=== PATIENT | female | born 1965 | race African-American/Black ===

== ENCOUNTER 2016-12-31 20:43 | Inpatient (IN) | payer OTHER ==
--- NOTE | ~2016-12-31 | CT102 ---
[facility] A Service of [facility] RADIOLOGY TEXT RESULTS PATIENT: CHRISTIAN FERNANDEZ LOCATION: [facility] [id number] : [birth year] UNIT #: [id number] AGE: [address]: Heena Thomas MD SEX: F ORDER DR: [id number] [facility] [address] [place], [place] [address] [id number] MR#: [id number] #: [id number] NAME: CHRISTIAN FERNANDEZ : 1965 SEX: F STUDY DATE/TIME: 12/31/2016 21:49 UNIT: CED ROOM: 55825 STUDY DESCRIPTION: CT Orbits W Contrast Attending Physician: Heena Thomas M.D. Ordering Physician: Wyatt Rouse M.D. Primary Care Physician: Robert Godinez M.D. MEDICAL IMAGING REPORT This report is preliminary unless electronic signature is present EXAM CT orbits with contrast INDICATIONS Right eye swelling since 12/15/2016. FINDINGS Axial 2-mm images were obtained through the orbits with 100 mL Isovue-370. Coronal reconstructions were generated. This CT exam was performed with one or more of the following radiation dose reduction techniques: Automatic exposure control, adjustment of mA and/or kV according to patient size, and iterative reconstruction. The globes, extraocular muscles and lacrimal glands appear normal. The skin overlying the right globe and maxillary region is thickened as compared with the left. There is mucous retention cyst in the right maxillary sinus. The bones are normal. IMPRESSION There appears to be some skin thickening overlying the right orbit extending from near the nose out to the zygomatic region. There is no abscess or other abnormality identified. Dictated by... Sonny Chery M.D. THIS IS AN ELECTRONICALLY VERIFIED REPORT Sonny Chery M.D. at 01/01/2017 5:54 AM FEL/yobany TD: 01/01/2017 02:07 [facility] A Service of [facility] RADIOLOGY TEXT RESULTS PATIENT: CHRISTIAN FERNANDEZ LOCATION: [facility] [id number] : [birth year] UNIT #: [id number] AGE: [address]: Heena Thomas MD SEX: F ORDER DR: JOB #: [id number] MEDICAL IMAGING REPORT Page 1 of 1 COPY
--- NOTE | ~2016-12-31 | HP ---
Unit #: [id number] #: [id number] Patient: CHRISTIAN FERNANDEZ [id number] [address] [place], [place] [address] [id number] MR#: [id number] NAME: CHRISTIAN FERNANDEZ ROOM: 18681 Age: 51 Sex: F Admission Date: 12/31/2016 : 1965 Attending Physician: Heena Thomas M.D. Primary Care Physician: Robert Godinez M.D. HISTORY AND PHYSICAL CHIEF COMPLAINT Persistent right periorbital cellulitis failing outpatient antibiotics. HISTORY This pleasant 51-year-old female with hypertension is admitted for right periorbital cellulitis. Two and a half weeks ago, the patient was scratched in her right eye by her grandchild accidentally. She subsequently developed swelling, pain, erythema and was seen by her primary care physician who prescribed Keflex. The patient initially had some improvement on the Keflex, but her symptoms worsened. She was changed to clindamycin and prednisone as she does have a pruritic rash over her face. Finished her prednisone yesterday, still is taking clindamycin. Notes initial improvement with the clindamycin, but now worsening symptoms over the past few days. Also feeling somewhat feverish. She presents to this emergency department where she has right periorbital cellulitis, and a pruritic rash over the right side of her face. The patient was given 5 mg of [place], vancomycin, morphine, potassium and Benadryl. Both the CT scan, as well as exam findings are consistent with a right periorbital cellulitis. No abscess is present. PAST MEDICAL HISTORY 1. Hypertension. 2. Left foot surgery. 3. Total abdominal hysterectomy. 4. BTL. ALLERGIES No known drug allergies. HOME MEDICATIONS Lisinopril 40 mg daily; metoprolol 25 mg b.i.d.; HCTZ 25 mg daily; Norvasc 5 mg daily. FAMILY HISTORY Diabetes mellitus and hypertension. SOCIAL HISTORY The patient lives with her brother and two teenage children. She smokes about a pack per day of tobacco and does not drink alcohol. REVIEW OF SYSTEMS Notable for itching, pain, swelling, around the right eye, particularly the upper lid with a pruritic rash over the face, hypertension, above Unit #: [id number] #: [id number] Patient: CHRISTIAN FERNANDEZ mentioned surgeries, tobacco abuse, feeling feverish. All other systems were reviewed and are negative. PHYSICAL EXAMINATION GENERAL: Pleasant 51-year-old female currently in no acute distress. VITAL SIGNS: Temperature 98.3, pulse 75, respirations 16, blood pressure 167/100, O2 saturation 100% on room air. HEENT: Notable for ptosis of the right upper eyelid, with periorbital cellulitis of the right upper eyelid and around the surrounding periorbital area. There is a pruritic rash over the right side of the cheek as well. Extraocular muscles, however, are intact but beside the ptosis. Pharynx is benign. NECK: Supple without adenopathy or thyromegaly. CHEST: Clear. CARDIAC: Normal S1 and S2 without S3, S4, or murmur. ABDOMEN: Bowel sounds are present. No hepatosplenomegaly, tenderness or masses. EXTREMITIES: Without clubbing, cyanosis or edema. Pedal pulses are present. NEUROLOGIC: Patient is awake, alert and oriented. Cranial nerves are intact except for a right ptosis secondary to cellulitis. Equal strength throughout, patient is able to walk with a normal gait. DIAGNOSTIC STUDIES LABORATORY STUDIES: Hematocrit 44.2, normal white count and platelet count. SMA 7 - glucose 167, potassium 2.8. IMAGING STUDIES: CT scan shows skin thickening right periorbital region. ASSESSMENT 1. Right periorbital cellulitis failing outpatient Keflex and then clindamycin. 2. Pruritic facial rash. 3. Hypokalemia. 4. Mild hyperglycemia likely related to recent steroids. 5. Essential hypertension. PLANS 1. Will treat broadly with vancomycin and Zosyn for now but likely can de-escalate antibiotics fairly quickly. 2. Tridesilon cream to pruritic area and will give p.o. Atarax. 3. Replace potassium, check magnesium. 4. DVT prophylaxis. Dictated by Bautista Camargo/ts TD: 01/01/2017 05:04 JOB #: [id number] Unit #: [id number] #: [id number] Patient: CHRISTIAN FERNANDEZ HISTORY AND PHYSICAL Page 1 of 1 X Heena Thomas MD HISTORY AND PHYSICAL
--- NOTE | ~2016-12-31 | DS ---
Unit #: [id number] #: [id number] Patient: CHRISTIAN FERNANDEZ [id number] [address] [place], [place] [address] [id number] MR#: [id number] NAME: CHRISTIAN FERNANDEZ ROOM: 240 Age: 51 Sex: F Admission Date: 12/31/2016 : 1965 Discharge Date: 01/03/2017 Attending Physician: Minal Lauren M.D. Primary Care Physician: Robert Godinez M.D. DISCHARGE SUMMARY DIAGNOSIS ON ADMISSION Right periorbital cellulitis, failing outpatient therapy. DIAGNOSES ON DISCHARGE 1. Right periorbital cellulitis, improved. 2. Hypertension. DIAGNOSTIC STUDIES LABORATORY: The patient's creatinine is 0.9, sodium 137, potassium 3.7. WBC 6.2, hemoglobin 14.3, platelet count 236,000. The patient's glucose yesterday morning was 88. MRSA screen was negative. IMAGING: Patient's CT scan of right orbit reveals some skin thickening over right orbit extending from near the nose out to the zygomatic region. HOSPITAL COURSE A 51-year-old patient presented to [facility] with right eye swelling. Details are as per admission H and P. Right periorbital cellulitis: The patient was treated on outpatient with antibiotic that she failed, but she was treated with IV vancomycin and Zosyn which she responded well and the swelling is remarkably improved. The patient also had pruritus and she was treated with Benadryl. Patient will be discharged home on Benadryl. Today patient is comfortable, is not in any acute distress, wants to go home. PHYSICAL EXAMINATION VITAL SIGNS: Reveal temperature of 98.4, pulse is 57 per minute, respiratory rate is 16 per minute, blood pressure is 142/85. HEENT: Revealed no conjunctival congestion. Sclerae is nonicteric. The patient has right eye slight swelling present. NECK: Supple. Trachea is central. RESPIRATORY: Revealed breath sounds equal bilaterally. There are no wheezes or crackles. HEART: Regular rate and rhythm. S1, S2. ABDOMEN: Soft, nontender. Bowel sounds are present in all four quadrants. RECOMMENDATIONS ON DISCHARGE Condition is stable. Activity is as tolerated. MEDICATIONS 1. Benadryl 25 mg q.6 hours p.r.n. itching. Unit #: [id number] #: [id number] Patient: CHRISTIAN FERNANDEZ 2. Norvasc 5 mg p.o. daily. 3. Toprol XL 25 mg p.o. b.i.d. 4. Lisinopril 40 mg p.o. daily. 5. Hydrochlorothiazide 25 mg p.o. daily. 6. Florastor 250 mg p.o. b.i.d. 7. Zyvox 600 mg p.o. b.i.d. for one week. 8. Augmentin 875 mg p.o. b.i.d. for one week. FOLLOWUP The patient is advised to follow up with primary care physician in one week and have a CBC and BMP done. Patient is advised to follow up with primary care physician earlier than one week if needed. The patient is advised to call primary care physician or go to ER if her condition changes. The plan was discussed in detail with patient who showed complete understanding. Kindly send a copy of this dictation to [facility] as patient stated that she is not following up with Dr. Godinez anymore. Dictated by... Bautista Moe TD: 01/03/2017 08:59 JOB #: [id number] CC: [facility] DISCHARGE SUMMARY Page 1 of 1 X Minal Lauren MD X DISCHARGE SUMMARY
[~2016-12-31 20:43] MED LIST: BACTRIM DS TABL1 TA1 PO; BACTRIM DS TABL1 TAB PO; BACTROBAN15 GM TOP; KEFLEX PO; METOPROLOL-HCTZ1 TAB PO; ULTRAM PO; VICODIN 5/500 T1 TAB PO; ZESTRIL10 MG PO
[2016-12-31 21:11] LABS: BASOPHIL# 0.1 X10e3 (0-0.3); BASOPHIL% 1.3 % (0-2.5); EOSINOPHIL# 0.2 X10e3 (0-0.7); EOSINOPHIL% 2.1 % (0.0-7.0); HEMATOCRIT 44.2 % (35.0-45.0); HEMOGLOBIN 14.5 gm/dL (12.0-16.0); LYMPHOCYTE# 4.2 X10e3 (1.0-3.5); LYMPHOCYTE% 46.1 % (17.0-45.0); MEAN CELL VOLUME 80.4 FL (83-96); MEAN CORPUSCULAR HEMOGLOBIN 26.4 PG (28-34); MEAN CORPUSCULAR HGB CONC 32.9 g/dL (30-36); MEAN PLATELET VOLUME 8.8 FL (6.5-11.5); MONOCYTE# 0.7 X10e3 (0-1.0); MONOCYTE% 8.1 % (3.0-12.0); NEUTROPHIL# 3.9 X10e3 (1.5-7.1); NEUTROPHIL% 42.4 % (40-75); PLATELET COUNT 255 X10e3 (140-420); RED BLOOD COUNT 5.49 X10e (3.90-5.30); RED CELL DISTRIBUTION WIDTH 14.6 % (11.0-15.5); WHITE BLOOD COUNT 9.1 X10e3 (4.0-10.5)
[2016-12-31 21:15] LABS: DIFF IND NO
[2016-12-31 21:41] LABS: CALCIUM SERUM 9.2 mg/dL (8.4-10.2); GLOM FILT RATE Estimated 74.5 mL/min (>60)
[2016-12-31 21:44] LABS: POTASSIUM 2.8 mmol/L (3.5-5.1)
[2016-12-31] MEDS ORDERED: PRINIVIL40 MG PO (22:21)
[2016-12-31] MEDS ORDERED: HYDROCHLOROTHIA25 MG PO (22:23)
[2016-12-31] MEDS ORDERED: METOPROLOL SUCC25 MG PO (22:23)
[2016-12-31] MEDS ORDERED: AMLODIPINE BESYL5 MG PO (22:23)
[2017-01-01 04:53] LABS: BASOPHIL# 0.1 X10e3 (0-0.3); BASOPHIL% 1.2 % (0-2.5); DIFF IND NO; EOSINOPHIL# 0.3 X10e3 (0-0.7); HEMATOCRIT 44.6 % (35.0-45.0); HEMOGLOBIN 14.5 gm/dL (12.0-16.0); LYMPHOCYTE# 4.2 X10e3 (1.0-3.5); LYMPHOCYTE% 46.3 % (17.0-45.0); MEAN CELL VOLUME 80.7 FL (83-96); MEAN CORPUSCULAR HEMOGLOBIN 26.2 PG (28-34); MEAN CORPUSCULAR HGB CONC 32.4 g/dL (30-36); MEAN PLATELET VOLUME 8.9 FL (6.5-11.5); MONOCYTE# 0.9 X10e3 (0-1.0); NEUTROPHIL# 3.6 X10e3 (1.5-7.1); NEUTROPHIL% 39.5 % (40-75); PLATELET COUNT 248 X10e3 (140-420); RED BLOOD COUNT 5.52 X10e (3.90-5.30); RED CELL DISTRIBUTION WIDTH 14.3 % (11.0-15.5)
[2017-01-01 05:25] LABS: ALBUMIN SERUM 3.5 g/dL (3.5-5.0); BILIRUBIN,TOTAL 0.6 mg/dL (0.2-2.0); GLOM FILT RATE Estimated 74.5 mL/min (>60); MAGNESIUM 1.9 mg/dL (1.6-3.0); POTASSIUM 3.6 mmol/L (3.5-5.1); PROTEIN TOTAL SERUM 6.5 g/dL (6.0-8.3)
[2017-01-02 05:35] LABS: HEMATOCRIT 44.3 % (35.0-45.0); HEMOGLOBIN 14.3 gm/dL (12.0-16.0); MEAN CELL VOLUME 81.2 FL (83-96); MEAN CORPUSCULAR HEMOGLOBIN 26.2 PG (28-34); MEAN CORPUSCULAR HGB CONC 32.3 g/dL (30-36); RED BLOOD COUNT 5.45 X10e (3.90-5.30); RED CELL DISTRIBUTION WIDTH 14.3 % (11.0-15.5); WHITE BLOOD COUNT 6.2 X10e3 (4.0-10.5)
[2017-01-02 06:08] LABS: BUN/CREATININE RATIO 16.66; CALCIUM SERUM 9.2 mg/dL (8.4-10.2); CREATININE SERUM 0.9 mg/dL (0.6-1.4); GLOM FILT RATE Estimated 84.7 mL/min (>60); POTASSIUM 3.9 mmol/L (3.5-5.1)
[2017-01-03] MEDS ORDERED: AUGMENTIN PO (09:19)
[2017-01-03] MEDS ORDERED: BENADRYL25 M1 PO (09:20)
[2017-01-03] MEDS ORDERED: FLORASTOR PO (09:21)
[2017-01-03] MEDS ORDERED: ZYVOX600 MG PO (09:21)
[2017-01-03] MEDS ORDERED: MILK OF MAGNESIA PO (09:23)
== END 2017-01-03 11:03 | disposition home or self-care (01) | DRG 603 ==
LOC: CFTX 20:43 → CEDOF 23:20 → C2A 01-01 07:37
PROVIDERS: Emergency Medicine; Internal Medicine
DX: L03.213 Periorbital cellulitis (principal); I10 Essential (primary) hypertension; E87.6 Hypokalemia; Z90.710 Acquired absence of both cervix and uterus; Z83.3 Family history of diabetes mellitus; Z82.49 Family history of ischemic heart disease and other diseases of the circulatory system; F17.210 Nicotine dependence, cigarettes, uncomplicated; R73.9 Hyperglycemia, unspecified; T38.0X5A Adverse effect of glucocorticoids and synthetic analogues, initial encounter; R21 Rash and other nonspecific skin eruption
CPT/HCPCS: 36415; 70481; 80048; 80053; 80202; 83735; 85025; 85027; 87070; 96365; 96366; 96375; 99285; J1200; J1650; J2270; J2543; J3370; Q9967